=== PATIENT | female | born 1985 | race African-American/Black ===

== ENCOUNTER 2017-01-04 17:36 | Emergency (ER) | payer OTHER ==
[2017-01-04 17:42] VITALS: BP 153/62; PULSE 90; TEMP 98.2; BMI 20.3
[2017-01-04] MEDS ORDERED: ALPRAZolam 0.25 MG TABLET PO ONE (18:04)
--- NOTE | 2017-01-04 18:44 | PDOC ---
History of Present Illness - General Chief Complaint: Chest Pain Stated Complaint: CHEST PAIN Time Seen by Provider: 01/04/17 17:54 History Source: Patient Exam Limitations: No Limitations - History of Present Illness Initial Comments: 01/04/17 18:28 CHIEF COMPLAINT: Chest pain HISTORY OF PRESENT ILLNESS: This is a 31 year old female with a history of IDDM and HTN who presents complaining of chest pain that began at around 3pm today. The pain is "tight", constant, and associated with shortness of breath. She finds that the pain is reproducible with pressing on her chest. She reports anxiety. She has had these episodes nearly daily for the past several months and attributes them to anxiety/panic. She denies recent travel/trauma/surgery, calf pain or swelling, hemoptysis, and family/personal history of hypercoaguability. She smokes cigarettes occasionally. Patient does not follow with a PCP. REVIEW OF SYSTEMS: GENERAL/CONSTITUTIONAL: No fever or chills. No weakness. No weight change. HEAD, EYES, EARS, NOSE AND THROAT: No change in vision. No ear pain or discharge. No sore throat. CARDIOVASCULAR: Chest tightness. RESPIRATORY: Shortness of breath. No cough, wheezing, or hemoptysis. GASTROINTESTINAL: No nausea, vomiting, diarrhea or constipation. GENITOURINARY: No dysuria, frequency, or change in urination. MUSCULOSKELETAL: No joint or muscle swelling or pain. No neck or back pain. SKIN: No rash or easy bruising. NEUROLOGIC: No headache, vertigo, loss of consciousness, or loss of sensation. PSYCHIATRIC: No depression or anxiety. ENDOCRINE: No increased thirst. No abnormal weight change. HEMATOLOGIC/LYMPHATIC: No anemia, easy bleeding, or history of blood clots. ALLERGIC/IMMUNOLOGIC: No hives or skin allergy. No latex allergy. PHYSICAL EXAM: GENERAL: The patient is awake, alert, and fully oriented, in no acute distress. ENT: Pupils equal, round and reactive to light, extraocular movements intact, sclera anicteric, conjunctiva clear. Neck supple. LUNGS: Lungs clear to auscultation No stridor or use of accessory muscles. CV: RRR, S1/S2, no MRG. Cap refill < 2 sec. ABDOMEN: Soft, non-distended, non-tender. EXTREMITIES: Normal range of motion, no edema. NEUROLOGICAL: Normal speech, normal gait. CN II-XII grossly intact. PSYCH: Normal mood, normal affect. SKIN: Warm, dry, normal turgor, no rashes or lesions noted. Past History - Past Medical History Allergies/Adverse Reactions: Allergies Allergy/AdvReac Type Severity Reaction Status Date / Time No Known Allergies Allergy Verified 01/04/17 17:42 Home Medications: Ambulatory Orders Insulin Aspart [Novolog Flexpen] 8 units SQ TID 06/03/14 Insulin Glargine,Hum.rec.anlog [Lantus Solostar PEN -] 20 units SQ HS 06/03/14 Lisinopril [Prinivil] 10 mg PO DAILY 08/05/16 Asthma: No Cancer: No Cardiac Disorders: No Diabetes: Yes HTN: Yes Seizures: No Thyroid Disease: No - Psycho/Social/Smoking Cessation Hx Anxiety: No Suicidal Ideation: No Smoking History: Current every day smoker Have you smoked in the past 12 months: No Number of Cigarettes Smoked Daily: 5 Information on smoking cessation initiated: No Hx Alcohol Use: Yes (ON OCCASIONS.) Drug/Substance Use Hx: No Substance Use Type: Alcohol Hx Substance Use Treatment: No *Physical Exam - Vital Signs Last Vital Signs Temp Pulse Resp BP Pulse Ox 98.2 F 90 18 153/62 100 01/04/17 17:38 01/04/17 17:38 01/04/17 17:38 01/04/17 17:38 01/04/17 17:38 ED Treatment Course - LABORATORY CBC & Chemistry Diagram: 01/04/17 18:40 01/04/17 18:40 - ADDITIONAL ORDERS Additional order review: Laboratory Results 01/04/17 18:10 Urine HCG, Qual Negative - RADIOLOGY Radiology Studies Ordered: Category Date Time Status CHEST PA & LAT [RAD] Stat Radiology 01/04/17 17:54 Ordered Medical Decision Making - Medical Decision Making 01/04/17 19:01 A/P: 31 year old female with chest tightness, shortness of breath, and anxiety. PERC negative. 1. EKG: NSR at 91 bpm, possible left atrial enlargement 2. Urine is negative 3. Obtain CXR 4. FSBG is 351; will obtain labs including acetone, VBG 5. Alprazolam 0.25mg po given for anxiety 6. Would recommend outpatient psychotherapy as well as cardiology evaluation and possible Holter monitor *DC/Admit/Observation/Transfer Diagnosis at time of Disposition: Chest discomfort Diabetes mellitus, insulin dependent (IDDM), uncontrolled Qualifiers: Diabetes mellitus complication status: with other specified complication Qualified Code(s): E10.69 - Type 1 diabetes mellitus with other specified complication - Discharge Dispostion Disposition: HOME - Referrals Referrals: Sujatha Asher NP [Primary Care Provider] - Tristan Hicks MD [Staff Physician] - - Patient Instructions Printed Discharge Instructions: DI for Chest Pain Additional Instructions: Please follow up with Dr. Akbar this week for continued management of your diabetes. Your kidney function test was mildly elevated; this needs to be monitored to ensure that your diabetes is not affecting your kidneys. Please follow up with cardiology this week for further evaluation of your recurrent chest discomfort. If you experience any new chest pain, shortness of breath, dizziness, headache, fever, chills, nausea, vomiting, or any new or worsening symptoms, please return to the ER.
[2017-01-04 18:46] LABS: BASOPHIL 0.9 % (0-2.0); EOSINOPHIL 0.5 % (0-4.5); MCHC 32.1 g/dl (32.0-36.0); MEAN CELL VOLUME 93.4 fl (80-96); MEAN PLT VOLUME 7.7 fl (7.5-11.1); NEUTROPHILS 67.6 % (42.8-82.8); PLATELET COUNT 264 K/MM3 (134-434); RDW 14.3 % (11.6-15.6); WHITE BLOOD COUNT 8.5 K/mm3 (4.0-10.0)
[2017-01-04] MEDS ORDERED: ALPRAZolam 0.25 MG TABLET ONE (19:02)
[2017-01-04 19:08] LABS: ALBUMIN 3.8 g/dl (3.4-5.0); ANION GAP 8 (8-16); BILIRUBIN,TOTAL 0.4 mg/dL (0.2-1.0); CALCIUM 8.6 mg/dL (8.5-10.1); CO2 26 mmol/L (21-32); CREATININE 1.1 mg/dL (0.55-1.02); GLUCOSE,RANDOM 271 mg/dL (74-106); SGOT/AST 15 U/L (15-37); SGPT/ALT 17 U/L (12-78); TOT PROT 7.9 g/dl (6.4-8.2); VENOUS BLOOD GAS HCO3 27.2 meq/L (19-25); VENOUS PH 7.31 (7.32-7.42)
[2017-01-04 19:10] LABS: ALK PHOS 73 U/L (45-117); TROPONIN I < 0.02 ng/ml (0.00-0.05)
[2017-01-04 19:23] LABS: ACETONE SERUM NEGATIVE (NEGATIVE)
--- NOTE | 2017-01-04 19:30 | PDOC ---
*Physical Exam - Vital Signs Last Vital Signs Temp Pulse Resp BP Pulse Ox 98.2 F 90 18 153/62 100 01/04/17 17:38 01/04/17 17:38 01/04/17 17:38 01/04/17 17:38 01/04/17 17:38 - Physical Exam Comments: 01/04/17 19:30 The patient was examined by [INSPECTOR ALIGNING Carmen] under my direct supervision. I personally evaluated the patient. I concur with the above findings and the plan of care. ED Treatment Course - LABORATORY CBC & Chemistry Diagram: 01/04/17 18:40 01/04/17 18:40 - ADDITIONAL ORDERS Additional order review: Laboratory Results 01/04/17 01/04/17 01/04/17 18:40 18:40 18:10 VBG pH 7.31 L POC VBG pCO2 55.2 H POC VBG pO2 25.7 L Mixed VBG HCO3 27.2 H Sodium 138 Potassium 4.1 Chloride 104 Carbon Dioxide 26 Anion Gap 8 BUN 15 Creatinine 1.1 H D Creat Clearance w eGFR 58.32 Random Glucose 271 H D Calcium 8.6 Total Bilirubin 0.4 D AST 15 ALT 17 Alkaline Phosphatase 73 Creatine Kinase 98 Troponin I < 0.02 Total Protein 7.9 Albumin 3.8 Urine HCG, Qual Negative Acetone, Qual Negative L 01/04/17 18:40 RBC 4.14 MCV 93.4 MCHC 32.1 RDW 14.3 MPV 7.7 Neutrophils % 67.6 D Lymphocytes % 23.3 D Monocytes % 7.7 Eosinophils % 0.5 Basophils % 0.9 - Medications Given in the ED: ED Medications Discontinued Medications Generic Name Dose Route Start Last Admin Trade Name Watson PRN Reason Stop Dose Admin Alprazolam 0.25 mg 01/04/17 18:04 01/04/17 19:02 Xanax - PO 01/04/17 18:05 0.25 mg ONCE ONE Administration *DC/Admit/Observation/Transfer Diagnosis at time of Disposition: Chest discomfort, Diabetes mellitus, insulin dependent (IDDM), uncontrolled - Discharge Dispostion Disposition: HOME - Referrals Referrals: Sujatha Asher NP [Primary Care Provider] - Tristan Hicks MD [Staff Physician] - - Patient Instructions Printed Discharge Instructions: DI for Chest Pain Additional Instructions: Please follow up with Dr. Akbar this week for continued management of your diabetes. Your kidney function test was mildly elevated; this needs to be monitored to ensure that your diabetes is not affecting your kidneys. Please follow up with cardiology this week for further evaluation of your recurrent chest discomfort. If you experience any new chest pain, shortness of breath, dizziness, headache, fever, chills, nausea, vomiting, or any new or worsening symptoms, please return to the ER.
[2017-01-04] MEDS ORDERED: SODIUM CHLORIDE 0.9% 1000 ML INFUS.BAG IV ONE ×2 (19:41→19:45)
--- NOTE | 2017-01-04 21:05 | PDOC ---
*Physical Exam - Vital Signs Last Vital Signs Temp Pulse Resp BP Pulse Ox 98.2 F 90 18 153/62 100 01/04/17 17:38 01/04/17 17:38 01/04/17 17:38 01/04/17 17:38 01/04/17 17:38 - Physical Exam Comments: 01/04/17 21:05 Sign-out received from outgoing ER provider Carmen. Pt interviewed and examined. Ancillary studies reviewed. Awaiting labs, CXR. CXR wet read normal with no signs of infiltrate or consolidation. Glucose 271, will give fluids. Creatinine mildly elevated to 1.1. Per RN, patient has given herself her normal 8 units of insulin plus an additional 2. Will repeat finger stick. POC glucose 40. Patient given juice. Patient drank juice and had a meal, repeat POC. At this time POC is 179. Will discharge to home with close follow up with PCP for continued management of her diabetes. Advised patient to follow up with cardiology for further evaluation of recurrent chest discomfort and possible holter monitor. Advised patient of signs and symptoms for return to ER; patient verbalized understanding and agrees to plan. ED Treatment Course - LABORATORY CBC & Chemistry Diagram: 01/04/17 18:40 01/04/17 18:40 - ADDITIONAL ORDERS Additional order review: Laboratory Results 01/04/17 01/04/17 01/04/17 18:40 18:40 18:10 VBG pH 7.31 L POC VBG pCO2 55.2 H POC VBG pO2 25.7 L Mixed VBG HCO3 27.2 H Sodium 138 Potassium 4.1 Chloride 104 Carbon Dioxide 26 Anion Gap 8 BUN 15 Creatinine 1.1 H D Creat Clearance w eGFR 58.32 Random Glucose 271 H D Calcium 8.6 Total Bilirubin 0.4 D AST 15 ALT 17 Alkaline Phosphatase 73 Creatine Kinase 98 Troponin I < 0.02 Total Protein 7.9 Albumin 3.8 Urine HCG, Qual Negative Acetone, Qual Negative L 01/04/17 18:40 RBC 4.14 MCV 93.4 MCHC 32.1 RDW 14.3 MPV 7.7 Neutrophils % 67.6 D Lymphocytes % 23.3 D Monocytes % 7.7 Eosinophils % 0.5 Basophils % 0.9 - Medications Given in the ED: ED Medications Discontinued Medications Generic Name Dose Route Start Last Admin Trade Name Freq PRN Reason Stop Dose Admin Alprazolam 0.25 mg 01/04/17 18:04 01/04/17 19:02 Xanax - PO 01/04/17 18:05 0.25 mg ONCE ONE Administration *DC/Admit/Observation/Transfer Diagnosis at time of Disposition: Chest discomfort Diabetes mellitus, insulin dependent (IDDM), uncontrolled Qualifiers: Diabetes mellitus complication status: with other specified complication Qualified Code(s): E10.69 - Type 1 diabetes mellitus with other specified complication; E10.65 - Type 1 diabetes mellitus with hyperglycemia - Discharge Dispostion Disposition: HOME Condition at time of disposition: Stable Admit: No - Referrals Referrals: Sujatha Asher NP [Primary Care Provider] - Tristan Hicks MD [Staff Physician] - - Patient Instructions Printed Discharge Instructions: DI for Chest Pain Additional Instructions: Please follow up with Dr. Akbar this week for continued management of your diabetes. Your kidney function test was mildly elevated; this needs to be monitored to ensure that your diabetes is not affecting your kidneys. Please follow up with cardiology this week for further evaluation of your recurrent chest discomfort. If you experience any new chest pain, shortness of breath, dizziness, headache, fever, chills, nausea, vomiting, or any new or worsening symptoms, please return to the ER.
--- NOTE | 2017-01-06 10:43 | EKG ---
Test Reason : Blood Pressure : / mmHG Vent. Rate : 091 BPM Atrial Rate : 091 BPM P-R Int : 158 ms QRS Dur : 074 ms QT Int : 374 ms P-R-T Axes : 067 069 070 degrees QTc Int : 460 ms NORMAL SINUS RHYTHM POSSIBLE LEFT ATRIAL ENLARGEMENT BORDERLINE ECG WHEN COMPARED WITH ECG OF 05-AUG-2016 07:38, NO SIGNIFICANT CHANGE WAS FOUND Confirmed by CLAUDIA YO MD ([id number]) on 01/06/2017 10:43:08 AM Referred By: Confirmed By:CLAUDIA YO MD
== END 2017-01-04 21:37 | disposition home or self-care (01) ==
LOC: JER 17:36
DX: R07.89 Other chest pain (principal); I10 Essential (primary) hypertension; E10.65 Type 1 diabetes mellitus with hyperglycemia; Z79.4 Long term (current) use of insulin
CPT/HCPCS: 36415; 71020-TC; 80053; 82009; 82550; 82803; 84484; 84703; 85025; 93005; 93010; 99284-25

== ENCOUNTER 2017-09-02 23:56 | Emergency (ER) | payer OTHER ==
--- NOTE | 2017-09-03 02:00 | PDOC ---
History of Present Illness - General Chief Complaint: Blood Pressure Problem Stated Complaint: BLOOD PRESSURE PROBLEM Time Seen by Provider: 09/03/17 01:48 Past History - Past Medical History Allergies/Adverse Reactions: Allergies Allergy/AdvReac Type Severity Reaction Status Date / Time No Known Allergies Allergy Verified 09/03/17 01:26 Home Medications: Ambulatory Orders Insulin Aspart [Novolog Flexpen] 8 units SQ TID 06/03/14 Insulin Glargine,Hum.rec.anlog [Lantus Solostar PEN -] 20 units SQ HS 06/03/14 Lisinopril [Prinivil] 10 mg PO DAILY 08/05/16 Asthma: No Cancer: No Cardiac Disorders: No Diabetes: Yes HTN: Yes Seizures: No Thyroid Disease: No - Suicide/Smoking/Psychosocial Hx Smoking History: Current every day smoker Have you smoked in the past 12 months: No Number of Cigarettes Smoked Daily: 5 Information on smoking cessation initiated: No Hx Alcohol Use: No Drug/Substance Use Hx: No Substance Use Type: Alcohol Hx Substance Use Treatment: No *Physical Exam - Vital Signs Last Vital Signs Temp Pulse Resp BP Pulse Ox 99.0 F 121 H 14 134/67 98 09/03/17 01:26 09/03/17 01:26 09/03/17 01:26 09/03/17 01:26 09/03/17 01:26
[2017-09-03 02:03] VITALS: BP 134/67; PULSE 121; TEMP 99; BMI 20.3
== END 2017-09-03 02:05 | disposition left against medical advice (07) ==
LOC: JER 23:56
DX: Z53.21 Procedure and treatment not carried out due to patient leaving prior to being seen by health care provider (principal)
CPT/HCPCS: 99281-25

== ENCOUNTER 2017-09-29 15:45 | Emergency (ER) | payer OTHER ==
[2017-09-29 16:11] VITALS: BP 118/80; PULSE 100; TEMP 98.6; BMI 21.2
--- NOTE | 2017-09-29 16:12 | PDOC ---
Rapid Medical Evaluation Time Seen by Provider: 09/29/17 16:08 Medical Evaluation: Allergies Allergy/AdvReac Type Severity Reaction Status Date / Time No Known Allergies Allergy Verified 09/29/17 16:08 09/29/17 16:08 The patient presents with a chief complaint of: 11 weeks . Noticed spotting starting two hours ago. No sonogram yet. Suprapubic tenderness. Denies hematuria, frequency, urgency, dysuria. LMP 07/16/17 I have performed a brief in-person evaluation of this patient; Pertinent physical exam findings: ambulatory, in no respiratory distress. VSS, Suprapubic tenderness, abdomen soft, non-distended I have ordered the following: CBC, Type and Screen, Beta-HCG, UA, UC, Transvaginal US The patient will proceed to the ED for further evaluation.
[2017-09-29 16:51] LABS: URINE APPEARANCE CLEAR; URINE BILIRUBIN NEGATIVE (NEGATIVE); URINE BLOOD 2+ (NEGATIVE); URINE COLOR LT. YELLOW; URINE GLUCOSE (UA) TRACE (NEGATIVE); URINE KETONE NEGATIVE (NEGATIVE); URINE LEUK ESTERASE NEGATIVE (NEGATIVE); URINE NITRITE NEGATIVE (NEGATIVE); URINE PROTEIN NEGATIVE (NEGATIVE); URINE UROBILINOGEN 0.2 mg/dL (0.2-1.0)
[2017-09-29 16:52] LABS: BASO % 0.6 % (0-2.0); EOS % 0.8 % (0-4.5); HEMATOCRIT 35.1 % (32.4-45.2); HEMOGLOBIN 11.5 GM/dL (10.7-15.3); LYMPH % 17.4 % (8-40); MCH 30.8 pg (25.7-33.7); MCHC 32.7 g/dl (32.0-36.0); MEAN CELL VOLUME 93.9 fl (80-96); MONO % 7.1 % (3.8-10.2); NEUT % 74.1 % (42.8-82.8); PLATELET COUNT 373 K/MM3 (134-434); RBC 3.73 M/mm3 (3.60-5.2); RDW 13.5 % (11.6-15.6); WHITE BLOOD COUNT 12.9 K/mm3 (4.0-10.0)
[2017-09-29] MEDS ORDERED: ACETAMINOPHEN 325 MG TABLET (FP) PO ONE (16:59)
[2017-09-29 17:14] LABS: EPI CELLS RARE /HPF (FEW); URINE BACTERIA RARE /hpf (NONE SEEN); URINE MUCUS RARE
--- NOTE | 2017-09-29 18:11 | PDOC ---
History of Present Illness - General Chief Complaint: Vaginal Bleeding Stated Complaint: VAGINAL BLEEDING (11 WKS ) Time Seen by Provider: 09/29/17 16:08 - History of Present Illness Initial Comments: 09/29/17 18:09 32 yo at 11 wga with h/o IDDM who presents with vaginal bleeding in . Patient reports acute onset of progressive bright red vaginal bleeding at 1300 ( 09/29/17), asx with diffuse crampy lower abdominal pain. Denies abdominal trauma. Denies N/V, F/C, DALY, vision changes, CP, SOB, pelvic pain, urinary complaints, hematuria, diarrhea, consitpation, BPR, lightheadedness. LMP ( 07/16/18). 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 Denies tobacco, alcohol, or eilicit drug use. Denies h/o STIs. Last complicated with placenta previa. Past History - Past Medical History Allergies/Adverse Reactions: Allergies Allergy/AdvReac Type Severity Reaction Status Date / Time No Known Allergies Allergy Verified 09/29/17 16:08 Home Medications: Ambulatory Orders Insulin Aspart [Novolog Flexpen] 8 units SQ TID 06/03/14 Asthma: No Cancer: No Cardiac Disorders: No COPD: No Diabetes: Yes HTN: Yes Seizures: No Thyroid Disease: No - Reproductive History Is Patient Now?: Yes (#): 4 Para: 2 Therapeutic (s) & number: Yes (ELECTIVE) - Suicide/Smoking/Psychosocial Hx Smoking History: Former smoker Have you smoked in the past 12 months: No Number of Cigarettes Smoked Daily: 5 Information on smoking cessation initiated: Yes Hx Alcohol Use: Yes (ON OCCASIONS.) Drug/Substance Use Hx: No Substance Use Type: None Hx Substance Use Treatment: No Review of Systems - Review of Systems Comments:: 09/29/17 18:10 GENERAL/CONSTITUTIONAL: No fever or chills. No weakness. HEAD, EYES, EARS, NOSE AND THROAT: No change in vision. No ear pain or discharge. No sore throat.- CARDIOVASCULAR: No chest pain or shortness of breath RESPIRATORY: No cough, wheezing, or hemoptysis. GASTROINTESTINAL: No nausea, vomiting, diarrhea or constipation. GENITOURINARY: + Vaginal bleeding. No dysuria, frequency, or change in urination. MUSCULOSKELETAL: No joint or muscle swelling or pain. No neck or back pain. SKIN: No rash NEUROLOGIC: No headache, vertigo, loss of consciousness, or change in strength/ sensation. ENDOCRINE: No increased thirst. No abnormal weight change HEMATOLOGIC/LYMPHATIC: No anemia, easy bleeding, or history of blood clots. ALLERGIC/IMMUNOLOGIC: No hives or skin allergy. *Physical Exam - Vital Signs Last Vital Signs Temp Pulse Resp BP Pulse Ox 98.6 F 100 H 18 118/80 100 09/29/17 16:08 09/29/17 16:08 09/29/17 16:08 09/29/17 16:08 09/29/17 16:08 - Physical Exam Comments: 09/29/17 18:11 GENERAL: Awake, alert, and fully oriented, in no acute distress HEAD: No signs of trauma, normocephalic, atraumatic EYES: PERRLA, EOMI, sclera anicteric, conjunctiva clear ENT: Hearing grossly normal, nares patent, oropharynx clear without exudates. Moist mucosa NECK: Normal ROM, no JVD, or masses LUNGS: No distress, speaks full sentences, clear to auscultation bilaterally HEART: Regular rate and rhythm, normal S1 and S2, no murmurs, rubs or gallops, peripheral pulses normal and equal bilaterally. ABDOMEN: Soft, nontender, normoactive bowel sounds. No guarding, no rebound. No masses : Active blood visualzied from vagina. Absent cervical motion ttp on bimanual exam. Unable to visualize cervical os d/t uterine alignment. EXTREMITIES : Normal inspection, Normal range of motion, no edema. No clubbing or cyanosis. SKIN: Warm, Dry, normal turgor, no rashes or lesions noted. ED Treatment Course - LABORATORY CBC & Chemistry Diagram: 09/29/17 16:40 09/29/17 18:28 - ADDITIONAL ORDERS Additional order review: Laboratory Results 09/29/17 16:40 Urine Color Lt. yellow Urine Appearance Clear Urine pH 6.0 Ur Specific [place] <= 1.005 Urine Protein Negative Urine Glucose (UA) Trace H Urine Ketones Negative Urine Blood 2+ H Urine Nitrite Negative Urine Bilirubin Negative Urine Urobilinogen 0.2 Ur Leukocyte Esterase Negative Urine WBC (Auto) <1 Urine RBC (Auto) <1 Ur Epithelial Cells Rare Urine Bacteria Rare Urine Mucus Rare 09/29/17 16:40 RBC 3.73 MCV 93.9 MCHC 32.7 RDW 13.5 MPV 7.0 L Neutrophils % 74.1 Lymphocytes % 17.4 D Monocytes % 7.1 Eosinophils % 0.8 Basophils % 0.6 - Medications Given in the ED: ED Medications Discontinued Medications Generic Name Dose Route Start Last Admin Trade Name Watson PRN Reason Stop Dose Admin Acetaminophen 650 mg 09/29/17 16:59 09/29/17 17:00 Tylenol - PO 09/29/17 17:00 650 mg ONCE ONE Administration Medical Decision Making - Medical Decision Making 09/29/17 18:23 32 yo at 11 wga with h/o IDDM who presents w acute onset of progressive bright red vaginal bleeding at 1300 ( 09/29/17), asx with diffuse crampy lower abdominal pain. Denies abdominal trauma. Denies N/V, F/C, DALY, vision changes, CP , SOB, pelvic pain, urinary complaints, hematuria, diarrhea, consitpation, BPR, lightheadedness. LMP ( 07/16/18). 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 Denies tobacco, alcohol, or eilicit drug use. Denies h/o STIs. Last complicated with placenta previa. Physical exam noteable for active blood visualized from vagina. Hemodynamically stable. Absent cervical motion ttp on bimanual exam. Unable to visualize cervical os d/t uterine alignment. Patient presentation of painful bleeding in concerning for placenta previa vs. chorionic hemmorhage vs. threatened . [facility] Course: 09/29/17 18:36 CBC: Unremarkable C 09/29/17 19:48 Vaginal U/S: Intrauterine gestational sac with yolk sac. No pole. Consistent with 5 wga. Patient stable and ready for d/c. Advised t f/u in ED or with [employer] for repeat HCG and ultrasound. Return precautions. *DC/Admit/Observation/Transfer Diagnosis at time of Disposition: Bleeding in early - Discharge Dispostion Disposition: HOME Condition at time of disposition: Stable Admit: No - Referrals Referrals: Chica Mendoza MD [Primary Care Provider] - Bert Cordova MD [Staff Physician] - - Patient Instructions Additional Instructions: Please return to the emergency department with any new or worsening symptoms or concerns. Please return to the emergency department or nut culler physician in 2 days for repeat testing. - Post Discharge Activity - Attestations Physician Attestion: 09/29/17 18:25 I attest to the information provided in this note.
[2017-09-29 19:03] LABS: ALBUMIN 3.7 g/dl (3.4-5.0); ALK PHOS 77 U/L (45-117); ANION GAP 7 (8-16); BILIRUBIN,TOTAL 0.3 mg/dL (0.2-1.0); BLOOD UREA NITROGEN 17 mg/dL (7-18); CHLORIDE 104 mmol/L (98-107); CO2 25 mmol/L (21-32); GLUCOSE,RANDOM 151 mg/dL (74-106); POTASSIUM 4.6 mmol/L (3.5-5.1); SGOT/AST 23 U/L (15-37); SGPT/ALT 24 U/L (12-78); SODIUM 136 mmol/L (136-145); TOT PROT 7.7 g/dl (6.4-8.2)
== END 2017-09-29 21:12 | disposition home or self-care (01) ==
LOC: JER 15:45
DX: O26.91 Pregnancy related conditions, unspecified, first trimester (principal); O20.8 Other hemorrhage in early pregnancy; O24.911 Unspecified diabetes mellitus in pregnancy, first trimester; Z3A.11 11 weeks gestation of pregnancy; Z79.4 Long term (current) use of insulin
CPT/HCPCS: 36415; 76817-TC; 80053; 81003; 81015; 84702; 85025; 86850; 86900; 86901; 87086; 99282-25

== ENCOUNTER 2017-09-30 02:39 | Emergency (ER) | payer OTHER ==
[2017-09-30 03:10] VITALS: BP 145/87; PULSE 98; TEMP 98.9; BMI 21.6
[2017-09-30] MEDS ORDERED: SODIUM CHLORIDE 1,000 ML IV STA (03:14)
--- NOTE | 2017-09-30 03:14 | PDOC ---
History of Present Illness - General Chief Complaint: Vaginal Bleeding Stated Complaint: R/O MISCARRIAGE Time Seen by Provider: 09/30/17 03:13 History Source: Patient - History of Present Illness Initial Comments: 09/30/17 04:07 32 year old female seen yesterday in the ED for vaginal bleeding in , return for pelvic cramping and passing large clots at home prior to arrival. Past History - Past Medical History Allergies/Adverse Reactions: Allergies Allergy/AdvReac Type Severity Reaction Status Date / Time No Known Allergies Allergy Verified 09/29/17 16:08 Home Medications: Ambulatory Orders NK [No Known Home Medication] 09/30/17 Asthma: No Cancer: No Cardiac Disorders: No COPD: No Diabetes: Yes HTN: Yes Seizures: No Thyroid Disease: No - Reproductive History (#): 4 Para: 2 Therapeutic (s) & number: Yes (ELECTIVE) - Suicide/Smoking/Psychosocial Hx Smoking History: Current every day smoker Have you smoked in the past 12 months: Yes Number of Cigarettes Smoked Daily: 2 Information on smoking cessation initiated: No Hx Alcohol Use: No Drug/Substance Use Hx: No Substance Use Type: Alcohol Hx Substance Use Treatment: No Review of Systems - Review of Systems Able to Perform ROS?: Yes Is the patient limited Bermudian proficient: No : Yes: Other (vaginal bleeding) *Physical Exam - Vital Signs Last Vital Signs Temp Pulse Resp BP Pulse Ox 98.9 F 98 H 18 145/87 98 09/30/17 03:05 09/30/17 03:05 09/30/17 03:05 09/30/17 03:05 09/30/17 03:05 - Physical Exam General Appearance: Yes: Appropriately Dressed Respiratory/Chest: positive: Lungs Clear, Normal Breath Sounds Cardiovascular: positive: Regular Rhythm, Regular Rate Female Pelvic Exam: positive: normal external exam, other (vaginal bleeding and clots in vaginal vault. ) Gastrointestinal/Abdominal: positive: Normal Bowel Sounds, Soft. negative: Tender Musculoskeletal: positive: Normal Inspection Extremity: positive: Normal Capillary Refill, Normal Inspection, Normal Range of Motion Integumentary: positive: Normal Color, Dry, Warm Neurologic: positive: Fully Oriented, Alert, Normal Mood/Affect ED Treatment Course - LABORATORY CBC & Chemistry Diagram: 09/30/17 03:30 Progress Note - Progress Note Progress Note: A: P: beta hcg lowering. 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 follow up with needle loom weaver as soon as possible. return to the ED if symptoms worsen. - Post Discharge Activity
[2017-09-30 03:44] LABS: BASO % 0.5 % (0-2.0); EOS % 1.1 % (0-4.5); HEMATOCRIT 34.9 % (32.4-45.2); HEMOGLOBIN 11.4 GM/dL (10.7-15.3); LYMPH % 18.4 % (8-40); MCH 30.6 pg (25.7-33.7); MCHC 32.7 g/dl (32.0-36.0); MEAN CELL VOLUME 93.6 fl (80-96); MONO % 8.4 % (3.8-10.2); NEUT % 71.6 % (42.8-82.8); PLATELET COUNT 325 K/MM3 (134-434); RBC 3.73 M/mm3 (3.60-5.2); RDW 13.2 % (11.6-15.6); WHITE BLOOD COUNT 12.8 K/mm3 (4.0-10.0)
[2017-09-30 04:03] LABS: INR 1.01 (0.82-1.09); PROTHROMBIN TIME (PATIENT) 11.4 SEC (9.98-11.88)
== END 2017-09-30 05:48 | disposition home or self-care (01) ==
LOC: JER 02:39
PROC: 3E0337Z Introduction of Electrolytic and Water Balance Substance into Peripheral Vein, Percutaneous Approach (ICD-10-PCS; principal; 2017-09-30)
DX: O26.891 Other specified pregnancy related conditions, first trimester (principal); O02.1 Missed abortion; Z3A.11 11 weeks gestation of pregnancy
CPT/HCPCS: 36415; 84702; 85025; 85610; 86850; 86900; 86901; 96360; 99281-25

== ENCOUNTER 2018-06-05 10:04 | Emergency (ER) | payer OTHER ==
[2018-06-05 10:30] LABS: URINE APPEARANCE CLEAR; URINE BILIRUBIN NEGATIVE (<2.0 mg/dL); URINE COLOR STRAW; URINE GLUCOSE (UA) 3+ (NEGATIVE); URINE KETONE NEGATIVE (NEGATIVE); URINE LEUK ESTERASE NEGATIVE (NEGATIVE); URINE NITRITE NEGATIVE (NEGATIVE); URINE PROTEIN NEGATIVE (NEGATIVE); URINE UROBILINOGEN NEGATIVE mg/dL (0.2-1.0)
[2018-06-05 10:31] LABS: HCG,QUALITATIVE URINE Negative
[2018-06-05 10:34] LABS: EPI CELLS RARE /HPF (FEW); URINE BACTERIA RARE /hpf (NONE SEEN); URINE MUCUS RARE
--- NOTE | 2018-06-05 11:08 | PDOC ---
History of Present Illness <Corina Chaudhari - Last Filed: 06/05/18 14:47> - History of Present Illness Initial Comments: 06/05/18 11:07 33 yo F w/ PMH HTN, IDDM, 2 C-sections p/w stabbing non radiating 6/10 intermittent RLQ pain x3wk w/ few episodes of NBNB vomit and decreased appetite. Pt went to [facility] twice in the last 3 weeks. They did U/S and CT and was told she had cysts and umbilical hernia. Abd pain is not associated w/ food. laying on L side makes it better. Denies fevers, chills, diarrhea, blood in stools, urinary sxs, vaginal bleeding or discharge, hx STDs, recent travel. LMP was 2 wks ago. SH: 3 cig/dy for 13 yr. etoh occasional. denies drugs Meds: amlodipine 5 HS, novalog 8U TID, Lantus 20U HS <Sid Conklin - Last Filed: 06/05/18 15:01> - General Chief Complaint: Pain, Acute Stated Complaint: ABD PAIN Past History <Corina Chaudhari - Last Filed: 06/05/18 14:47> - Past Medical History Asthma: No Cancer: No Cardiac Disorders: No COPD: No Diabetes: Yes (insulin dep) HTN: Yes Seizures: No Thyroid Disease: No - Reproductive History (#): 4 Para: 2 Therapeutic (s) & number: Yes (ELECTIVE) - Suicide/Smoking/Psychosocial Hx Smoking History: Current every day smoker Have you smoked in the past 12 months: Yes Number of Cigarettes Smoked Daily: 2 Information on smoking cessation initiated: No Hx Alcohol Use: No Drug/Substance Use Hx: No Substance Use Type: Alcohol Hx Substance Use Treatment: No <Sid Conklin - Last Filed: 06/05/18 15:01> - Past Medical History Allergies/Adverse Reactions: Allergies Allergy/AdvReac Type Severity Reaction Status Date / Time No Known Allergies Allergy Verified 06/05/18 10:08 Home Medications: Ambulatory Orders Amlodipine Besylate [Norvasc -] 5 mg PO DAILY 06/05/18 Insulin (Novolog) [Novolog] 8 units SQ AC 06/05/18 Insulin Glargine,Hum.rec.anlog [Lantus Solostar PEN (NF)] 20 units SQ HS Review of Systems - Review of Systems Constitutional: Yes: See HPI HEENTM: Yes: See HPI Respiratory: Yes: See HPI Cardiac (ROS): Yes: See HPI ABD/GI: Yes: See HPI : Yes: See HPI Musculoskeletal: Yes: See HPI Integumentary: Yes: See HPI Neurological: Yes: See HPI Endocrine: Yes: See HPI Hematologic/Lymphatic: Yes: See HPI <Sid Conklin - Last Filed: 06/05/18 15:01> *Physical Exam - Vital Signs Last Vital Signs Temp Pulse Resp BP Pulse Ox 98.2 F 89 18 163/89 100 06/05/18 14:33 06/05/18 14:33 06/05/18 14:33 06/05/18 14:33 06/05/18 14:33 <Corina Chaudhari - Last Filed: 06/05/18 14:47> - Vital Signs Last Vital Signs Temp Pulse Resp BP Pulse Ox 98.5 F 101 H 18 147/98 100 06/05/18 10:11 06/05/18 10:11 06/05/18 10:11 06/05/18 10:11 06/05/18 10:11 - Physical Exam Comments: 06/05/18 11:49 General: Well-nourished, NAD HEENT: NCAT, MMM Neck: Supple, no lymphadenopathy Respiratory: CTAB cardio: RRR S1 S2 no m/r/g Abdomen: +BS , Soft, mild distension, TTP RLQ +psoas sign, small umbilical hernia Extremities: radial 2+ b/l. Warm, dry, no cyanosis, edema, clubbing or calf tenderness Skin: intact. no rashes Neuro: Alert and oriented x3, nonfocal exam, grossly intact Psych: Normal mood and affect Pelvic: no vaginal bleeding or cervical motion tenderness. R adnexal tenderness. white cervical discharge <KaterinSid - Last Filed: 06/05/18 15:01> ED Treatment Course - LABORATORY CBC & Chemistry Diagram: 06/05/18 11:28 06/05/18 11:28 - ADDITIONAL ORDERS Additional order review: Laboratory Results 06/05/18 06/05/18 11:28 10:15 Sodium 133 L Potassium 4.7 Chloride 100 Carbon Dioxide 26 Anion Gap 7 L BUN 13 Creatinine 1.1 Creat Clearance w eGFR 57.56 Random Glucose 228 H Calcium 9.1 Total Bilirubin 0.1 L AST 19 ALT 20 Alkaline Phosphatase 80 Total Protein 8.1 Albumin 3.7 Urine Color Straw Urine Appearance Clear Urine pH 5.0 Ur Specific [place] 1.003 L Urine Protein Negative Urine Glucose (UA) 3+ H D Urine Ketones Negative Urine Blood 1+ H Urine Nitrite Negative Urine Bilirubin Negative Urine Urobilinogen Negative Ur Leukocyte Esterase Negative Urine WBC (Auto) 1 Urine RBC (Auto) <1 Ur Epithelial Cells Rare Urine Bacteria Rare Urine Mucus Rare Urine HCG, Qual Negative 06/05/18 11:28 RBC 4.14 MCV 91.6 MCHC 32.7 RDW 13.2 MPV 7.3 L Neutrophils % 46.1 D Lymphocytes % 39.8 D Monocytes % 9.2 Eosinophils % 4.0 D Basophils % 0.9 <Corina Chaudhari - Last Filed: 06/05/18 14:47> - LABORATORY CBC & Chemistry Diagram: 06/05/18 11:28 06/05/18 11:28 - ADDITIONAL ORDERS Additional order review: Laboratory Results 06/05/18 10:15 Urine Color Straw Urine Appearance Clear Urine pH 5.0 Ur Specific [place] 1.003 L Urine Protein Negative Urine Glucose (UA) 3+ H D Urine Ketones Negative Urine Blood 1+ H Urine Nitrite Negative Urine Bilirubin Negative Urine Urobilinogen Negative Ur Leukocyte Esterase Negative Urine WBC (Auto) 1 Urine RBC (Auto) <1 Ur Epithelial Cells Rare Urine Bacteria Rare Urine Mucus Rare Urine HCG, Qual Negative <Sid Conklin - Last Filed: 06/05/18 15:01> Medical Decision Making - Medical Decision Making 06/05/18 11:22 33 yo F w/ PMH HTN, IDDM, 2 C-sections p/w stabbing non radiating 6/10 intermittent RLQ pain x3wk w/ few episodes of NBNB vomit and decreased appetite. neg UA for infx, neg preg tachycardia, other vitals wnl Ddx: appendicitis vs ovarian cyst rupture vs torsion vs SBO vs hernia -CBC CMP -Pelvic U/S -will call [facility] to obtain U/S and CT results, pt consented to release of info. -GC amplification 06/05/18 12:08 CT and U/S obtained: -CT showed mild fluid distension of the cecum and fluid prominence of the R colon nonspecific. small umbilical hernia containing fat, no strangulation, anterior abd wall midline deficiency. appendix partially seen, visualized portions normal size -U/S showed b/l ovarian cysts and no torsion. cysts were <2cm in size 06/05/18 14:59 labs and UA unremarkable U/S shows simple R ovarian cyst pt with negative recent ct. due to risk/ benefit of radiation, repeat ct unwarranted. will refer pt out for fu with gi and ob/ rn gyn. pt stable and ready for discharge <Sid Conklin - Last Filed: 06/05/18 15:01> *DC/Admit/Observation/Transfer - Discharge Dispostion Decision to Admit order: No <Corina Chaudhari - Last Filed: 06/05/18 14:47> <Sid Conklin - Last Filed: 06/05/18 15:01> Diagnosis at time of Disposition: Abdominal pain - Discharge Dispostion Disposition: HOME Condition at time of disposition: Stable - Referrals Referrals: Zoey Josue MD [Non Staff, Medical] - Sally Frye MD [Staff Physician] - Deniz Quiñonez MD [Staff Physician] - - Patient Instructions Printed Discharge Instructions: Acute Abdominal Pain Additional Instructions: you should follow up with a fagot maker. call dr frye to schedule. you should also follow up with a ob/ project manager retail. call dr. quiñonez to schedule. return for any vomiting, fever chills or any concerns.
[2018-06-05 11:41] LABS: BASO % 0.9 % (0-2.0); HEMOGLOBIN 12.4 GM/dL (10.7-15.3); LYMPH % 39.8 % (8-40); MCHC 32.7 g/dl (32.0-36.0); MEAN CELL VOLUME 91.6 fl (80-96); MEAN PLT VOLUME 7.3 fl (7.5-11.1); MONO % 9.2 % (3.8-10.2); NEUT % 46.1 % (42.8-82.8); PLATELET COUNT 345 K/MM3 (134-434); RBC 4.14 M/mm3 (3.60-5.2); RDW 13.2 % (11.6-15.6); WHITE BLOOD COUNT 6.1 K/mm3 (4.0-10.0)
[2018-06-05 12:02] LABS: ALBUMIN 3.7 g/dl (3.4-5.0); ALK PHOS 80 U/L (45-117); ANION GAP 7 MMOL/L (8-16); BILIRUBIN,TOTAL 0.1 mg/dL (0.2-1); BLOOD UREA NITROGEN 13 mg/dL (7-18); CALCIUM 9.1 mg/dL (8.5-10.1); CHLORIDE 100 mmol/L (98-107); CO2 26 mmol/L (21-32); CREATININE 1.1 mg/dL (0.55-1.3); GLUCOSE,RANDOM 228 mg/dL (74-106); POTASSIUM 4.7 mmol/L (3.5-5.1); SGOT/AST 19 U/L (15-37); SGPT/ALT 20 U/L (13-61); SODIUM 133 mmol/L (136-145); TOT PROT 8.1 g/dl (6.4-8.2)
--- NOTE | 2018-06-05 12:09 | PDOC ---
Attending Attestation - Resident Resident Name: KaterinSid - ED Attending Attestation I have performed the following: I have examined & evaluated the patient, The case was reviewed & discussed with the resident, I agree w/resident's findings & plan, Exceptions are as noted - HPI HPI: 06/05/18 12:04 33 yo F with h/o ovarian cyst here with c/o persistant right lower quadrant pain. has had pain intermittently for 3 week. cant associate any moderating factors. no f/c no urinary complaints. no vaginal discharge. denies associate with food. no back pain. no urinary complaints. was seen at [facility] one week ago had ct a/p with iv and oral contrast, and tvus. small 1.5 cm cyst bilat adnexa, and ct with paritially visuzlied appendix, no appendictis. noted dilated bowel on right side. - Physicial Exam PE: 06/05/18 12:07 awake alert lungs clear bilaterally heart rrr no mrg abd soft mild rlq ttp. no rebound no guarding. no cva tenderness. pelvic scant whitish discharge. right adnexal tenderness. no cmt. no adnexal massess. - Medical Decision Making 06/05/18 12:08 differential: ovarian cyst rupture, appendicitis unlikley due to longevity of sxs, gas pain. intestinal issues. will repeat us ovaries. possible outpt referral for gi. chlmaydia and gc sent. ucg. 06/05/18 14:46 pt ultrasoud with simple right ivarian cyst. pt with negative recent ct. due to risk/ benefit of radiation, repeat ct unwarranted. will refer pt out for fu with gi and ob/ buildings painter.
[2018-06-05 14:34] VITALS: BP 163/89; PULSE 89; TEMP 98.2
== END 2018-06-05 15:04 | disposition home or self-care (01) ==
LOC: JER 10:04
DX: R10.31 Right lower quadrant pain (principal); N83.201 Unspecified ovarian cyst, right side; N83.202 Unspecified ovarian cyst, left side; I10 Essential (primary) hypertension; E10.9 Type 1 diabetes mellitus without complications; Z79.4 Long term (current) use of insulin
CPT/HCPCS: 36415; 76856-TC; 80053; 81003; 81015; 84703; 85025; 87086; 87491; 87591; 99284-25

== ENCOUNTER 2018-08-03 17:23 | Emergency (ER) | payer OTHER ==
[2018-08-03 17:32] VITALS: BP 153/91; PULSE 93; TEMP 98.8; BMI 21.2
--- NOTE | 2018-08-03 17:32 | PDOC ---
Rapid Medical Evaluation Time Seen by Provider: 08/03/18 17:29 Medical Evaluation: Allergies Allergy/AdvReac Type Severity Reaction Status Date / Time No Known Allergies Allergy Verified 06/05/18 10:08 08/03/18 17:29 I have performed a brief in-person evaluation of this patient. The patient presents with a chief complaint of: Vomiting w/ abd pain today. Vomitus have streaks of blood per pt. Now feels light headed. No diarrhea or fever. H/o IDDM (Type 1), HTN, ?umbilical hernia, no h/o DKA Pertinent physical exam findings: I have ordered the following:labs/ua/upreg The patient will proceed to the ED for further evaluation Discharge Disposition - Diagnosis Abdominal pain Qualifiers: Abdominal location: generalized Qualified Code(s): R10.84 - Generalized abdominal pain - Discharge Dispostion Condition at time of disposition: Stable - Referrals - Patient Instructions - Post Discharge Activity
--- NOTE | 2018-08-03 17:44 | PDOC ---
History of Present Illness - General Chief Complaint: Nausea/Vomiting Stated Complaint: Vomiting Blood/ABD PAIN Time Seen by Provider: 08/03/18 17:29 - History of Present Illness Initial Comments: 08/03/18 17:44 Ms. Butler is a 33 yo female w/ pmh of type I DM, HTN, and known umbilical hernia who presents for evaluation of nausea and vomiting. Patient reports she was out with friends last night drinking and experienced nausea and vomiting upon waking up this morning. She became concerned when successive vomiting episodes became tinged with blood. She also reports some midline abdominal pain (now resolved). No other concerns at this time. The patient denies chest pain, shortness of breath, headache and dizziness. Denies fever, chills, diarrhea and constipation. Denies dysuria, frequency, urgency and hematuria. Past History - Past Medical History Allergies/Adverse Reactions: Allergies Allergy/AdvReac Type Severity Reaction Status Date / Time No Known Allergies Allergy Verified 06/05/18 10:08 Home Medications: Ambulatory Orders Amlodipine Besylate [Norvasc -] 5 mg PO DAILY 06/05/18 Insulin (Novolog) [Novolog] 8 units SQ AC 06/05/18 Insulin Glargine,Hum.rec.anlog [Lantus Solostar PEN (NF)] 20 units SQ HS Asthma: No Cancer: No Cardiac Disorders: No COPD: No Diabetes: Yes (insulin dep) HTN: Yes Seizures: No Thyroid Disease: No Other medical history: UMBLICAL HERNIA - Surgical History Cardiac Surgery: No Neurologic Surgery: No - Reproductive History (#): 4 Para: 2 Therapeutic (s) & number: Yes (ELECTIVE) - Immunization History Immunization Up to Date: No - Suicide/Smoking/Psychosocial Hx Smoking History: Current some day smoker Have you smoked in the past 12 months: No Number of Cigarettes Smoked Daily: 2 Information on smoking cessation initiated: No Hx Alcohol Use: No Drug/Substance Use Hx: No Substance Use Type: Alcohol Hx Substance Use Treatment: No Review of Systems - Review of Systems Comments:: 08/03/18 17:45 GENERAL/CONSTITUTIONAL: No fever or chills. No weakness. HEAD, EYES, EARS, NOSE AND THROAT: No change in vision. No ear pain or discharge. No sore throat. CARDIOVASCULAR: No chest pain or shortness of breath RESPIRATORY: No cough, wheezing, or hemoptysis. GASTROINTESTINAL: +N/V as described w/ additional midline abdominal pain. No diarrhea or constipation. GENITOURINARY: No dysuria, frequency, or change in urination. MUSCULOSKELETAL: No joint or muscle swelling or pain. No neck or back pain. SKIN: No rash NEUROLOGIC: No headache, vertigo, loss of consciousness, or change in strength/ sensation. ENDOCRINE: No increased thirst. No abnormal weight change HEMATOLOGIC/LYMPHATIC: No anemia, easy bleeding, or history of blood clots. ALLERGIC/IMMUNOLOGIC: No hives or skin allergy. *Physical Exam - Vital Signs Last Vital Signs Temp Pulse Resp BP Pulse Ox 98.8 F 93 H 18 153/91 99 08/03/18 17:29 08/03/18 17:29 08/03/18 17:29 08/03/18 17:29 08/03/18 17:29 - Physical Exam Comments: 08/03/18 17:46 GENERAL: Awake, alert, and fully oriented, in no acute distress HEAD: No signs of trauma, normocephalic, atraumatic EYES: PERRLA, EOMI, sclera anicteric, conjunctiva clear ENT: Auricles normal inspection, hearing grossly normal, nares patent, oropharynx clear without exudates. Moist mucosa NECK: Normal ROM, supple, no lymphadenopathy, JVD, or masses LUNGS: No distress, speaks full sentences, clear to auscultation bilaterally HEART: Regular rate and rhythm, normal S1 and S2, no murmurs, rubs or gallops, peripheral pulses normal and equal bilaterally. ABDOMEN: Soft, nontender, normoactive bowel sounds. No guarding, no rebound. No masses EXTREMITIES: Normal inspection, Normal range of motion, no edema. No clubbing or cyanosis. NEUROLOGICAL: Cranial nerves II through XII grossly intact. Normal speech, normal gait, no focal sensorimotor deficits SKIN: Warm, Dry, normal turgor, no rashes or lesions noted. Moderate Sedation - Procedure Monitoring Vital Signs: Procedure Monitoring Vital Signs Temperature 98.8 F 08/03/18 17:29 Pulse Rate 93 H 08/03/18 17:29 Respiratory Rate 18 08/03/18 17:29 Blood Pressure 153/91 08/03/18 17:29 O2 Sat by Pulse Oximetry (%) 99 08/03/18 17:29 ED Treatment Course - LABORATORY CBC & Chemistry Diagram: 08/03/18 17:40 08/03/18 17:40 Medical Decision Making - Medical Decision Making 08/03/18 18:04 Ms. Butler is a 33 yo female w/ pmh as described who presents for evaluation of symptoms c/w hangover. Suspect blood tinged vomit due to repeated vomiting. Labs sent for evaluation of fluid status and infection r/o. Zofran/fluids given for symptomatic relief. 08/03/18 18:51 Patient reporting relief with above treatment. Labs grossly wnl as below. No concern for acute process at this time. Discharging to home. Laboratory Results - last 24 hr 08/03/18 08/03/18 08/03/18 17:30 17:40 17:40 WBC 8.8 RBC 3.91 Hgb 12.4 Hct 35.7 MCV 91.3 MCH 31.8 MCHC 34.9 RDW 13.8 Plt Count 325 MPV 7.7 Absolute Neuts (auto) 5.3 Neutrophils % 60.7 D Lymphocytes % 29.7 D Monocytes % 7.8 Eosinophils % 0.9 Basophils % 0.9 Nucleated RBC % 0 Sodium 134 L Potassium 4.2 Chloride 99 Carbon Dioxide 27 Anion Gap 8 BUN 19 H Creatinine 1.4 H Creat Clearance w eGFR 43.58 Random Glucose 278 H Calcium 8.6 Total Bilirubin 0.5 AST 17 ALT 20 Alkaline Phosphatase 78 Total Protein 7.7 Albumin 3.7 Lipase 93 Urine Color Straw Urine Appearance Clear Urine pH 6.0 Ur Specific [place] 1.024 Urine Protein Negative Urine Glucose (UA) 3+ H Urine Ketones Negative Urine Blood Negative Urine Nitrite Negative Urine Bilirubin Negative Urine Urobilinogen Negative Ur Leukocyte Esterase Negative Urine HCG, Qual Negative *DC/Admit/Observation/Transfer Diagnosis at time of Disposition: Abdominal pain Qualifiers: Abdominal location: generalized Qualified Code(s): R10.84 - Generalized abdominal pain - Discharge Dispostion Disposition: HOME Condition at time of disposition: Stable - Referrals - Patient Instructions Printed Discharge Instructions: DI for Vomiting -- Adult Additional Instructions: You were evaluated today in the ER for your nausea and vomiting. No concerning findings were found at this time. You reported improvement of symptoms after fluids and medication. Please follow-up with primary care provider later this week for further evaluation. Return to ER if any return of nausea or vomiting, fevers, chills, or other concerning symptoms. - Post Discharge Activity
[2018-08-03] MEDS ORDERED: SODIUM CHLORIDE 1,000 ML IV STA (17:57)
[2018-08-03] MEDS ORDERED: ONDANSETRON 4 MG/2 ML VIAL IVPUSH ONE (17:57)
[2018-08-03 17:59] LABS: BASO % 0.9 % (0-2.0); EOS % 0.9 % (0-4.5); HEMATOCRIT 35.7 % (32.4-45.2); HEMOGLOBIN 12.4 GM/dL (10.7-15.3); LYMPH % 29.7 % (8-40); MCH 31.8 pg (25.7-33.7); MCHC 34.9 g/dl (32.0-36.0); MEAN CELL VOLUME 91.3 fl (80-96); MEAN PLT VOLUME 7.7 fl (7.5-11.1); MONO % 7.8 % (3.8-10.2); NEUT % 60.7 % (42.8-82.8); PLATELET COUNT 325 K/MM3 (134-434); RBC 3.91 M/mm3 (3.60-5.2); RDW 13.8 % (11.6-15.6); WHITE BLOOD COUNT 8.8 K/mm3 (4.0-10.0)
[2018-08-03 18:07] LABS: URINE APPEARANCE CLEAR; URINE BILIRUBIN NEGATIVE (<2.0 mg/dL); URINE COLOR STRAW; URINE GLUCOSE (UA) 3+ (NEGATIVE); URINE KETONE NEGATIVE (NEGATIVE); URINE LEUK ESTERASE NEGATIVE (NEGATIVE); URINE NITRITE NEGATIVE (NEGATIVE); URINE PROTEIN NEGATIVE (NEGATIVE); URINE UROBILINOGEN NEGATIVE mg/dL (0.2-1.0)
[2018-08-03 18:08] LABS: HCG,QUALITATIVE URINE Negative
--- NOTE | 2018-08-03 18:10 | PDOC ---
Attending Attestation - HPI HPI: 08/03/18 18:20 The patient is a 33 year old female with a past medical history of type I diabetes, HTN, and a known umbilical hernia here today for evaluation of nausea and vomiting. The patient reports that she went out drinking last night with friends and woke up the next morning feeling nauseous and vomited. She noted blood in her vomit after several episodes. She also noted that she abdominal pain that has since resolved. Patient denies headache, lightheadedness. Denies fever, chills. Denies chest pain, shortness of breath. Denies diarrhea, abdominal pain. Denies lower extremity edema. Denies urinary symptoms. Denies neurologic symptoms. Allergies: NKA PCP: none reported <Jeffrey Barber - Last Filed: 08/03/18 18:20> - Resident Resident Name: Hemant Cabrera - ED Attending Attestation I have performed the following: I have examined & evaluated the patient, The case was reviewed & discussed with the resident, I agree w/resident's findings & plan, Exceptions are as noted - HPI HPI: 08/03/18 18:08 33 yo female p/w epigastric pain and vomiting after drinking alcohol . she is IDDM and states that prior to last night her glucose levels have been good and she has had no symptom - Physicial Exam PE: 08/03/18 18:11 Well-nourished well-developed 33-year-old female in no acute distress at this time. Head is normocephalic, atraumatic neck supple,no bruits lungs cta b/l cvs [id number] abd soft,nontender ext no edema abd no rebouns,no guarding neuro axox3,ambulatory skin warma dn dry psych appropriate - Medical Decision Making 08/03/18 18:14 LMP 07/08/18 to 07/13/18 benign abd exam symptoms consistent w etoh diff diag gastritis, dka, cholecystitis,gerd 08/03/18 18:52 Negative test Glucose equal to 278, normal anion gap, Creatinine slightly bumped to 1.4, patient to receive IV fluids CBC has no leukocytosis or anemia imp gastritis due to etoh <Ivette Dunaway - Last Filed: 08/03/18 18:52>
[2018-08-03] MEDS ORDERED: ONDANSETRON 4 MG/2 ML VIAL ONE (18:23)
[2018-08-03 18:42] LABS: ALBUMIN 3.7 g/dl (3.4-5.0); ALK PHOS 78 U/L (45-117); ANION GAP 8 MMOL/L (8-16); BILIRUBIN,TOTAL 0.5 mg/dL (0.2-1); BLOOD UREA NITROGEN 19 mg/dL (7-18); CALCIUM 8.6 mg/dL (8.5-10.1); CHLORIDE 99 mmol/L (98-107); CO2 27 mmol/L (21-32); CREATININE 1.4 mg/dL (0.55-1.3); GLUCOSE,RANDOM 278 mg/dL (74-106); LIPASE 93 U/L (73-393); POTASSIUM 4.2 mmol/L (3.5-5.1); SGOT/AST 17 U/L (15-37); SGPT/ALT 20 U/L (13-61); SODIUM 134 mmol/L (136-145); TOT PROT 7.7 g/dl (6.4-8.2)
[2018-08-03 19:00] LABS: ACETONE SERUM NEGATIVE (NEGATIVE)
== END 2018-08-03 18:59 | disposition home or self-care (01) ==
LOC: JER 17:23
PROC: 3E033GC Introduction of Other Therapeutic Substance into Peripheral Vein, Percutaneous Approach (ICD-10-PCS; principal; 2018-08-03)
PROC: 3E0337Z Introduction of Electrolytic and Water Balance Substance into Peripheral Vein, Percutaneous Approach (ICD-10-PCS; 2018-08-03)
DX: R10.84 Generalized abdominal pain (principal)
CPT/HCPCS: 36415; 80053; 81003; 82009; 83690; 84703; 85025; 96361; 96374; 99283-25; J7030

== ENCOUNTER 2019-09-13 17:59 | Emergency (ER) | payer OTHER ==
[2019-09-13 18:18] VITALS: BP 145/89; PULSE 105; TEMP 98.4; BMI 21.2
--- NOTE | 2019-09-13 18:20 | PDOC ---
Rapid Medical Evaluation Chief Complaint: Cold Symptoms Time Seen by Provider: 09/13/19 18:17 Medical Evaluation: Allergies Allergy/AdvReac Type Severity Reaction Status Date / Time No Known Allergies Allergy Verified 06/05/18 10:08 Vital Signs Temp Pulse Resp BP Pulse Ox 98.4 F 105 H 18 145/89 100 09/13/19 18:16 09/13/19 18:16 09/13/19 18:16 09/13/19 18:16 09/13/19 18:16 09/13/19 18:19 I performed a brief in-persone valuation of this patient. 34-year-old female history of pre-eclampsia, HTN (no longer on meds) with subjective fever, cough, rhinorrhea since yesterday. Thinks may be . Pertinent physical exam findings: +Rhinorrhea Lungs clear HR 105 I have ordered the following: Rapid flu given suspected Pgu Discharge Disposition - Diagnosis Flu-like symptoms - Referrals - Patient Instructions - Post Discharge Activity
--- NOTE | 2019-09-13 19:28 | PDOC ---
History of Present Illness - General Chief Complaint: Cold Symptoms Stated Complaint: THROAT PAIN/COLD Time Seen by Provider: 09/13/19 18:17 - History of Present Illness Initial Comments: 09/13/19 19:27 34-year-old female presents to the emergency room requesting a test also with viral upper respiratory symptoms x2 days no systemic symptoms Past History - Past Medical History Allergies/Adverse Reactions: Allergies Allergy/AdvReac Type Severity Reaction Status Date / Time No Known Allergies Allergy Verified 06/05/18 10:08 Home Medications: Ambulatory Orders Insulin (Novolog) [Novolog] 8 units SQ AC 06/05/18 Insulin Glargine,Hum.rec.anlog [Lantus Solostar PEN (NF)] 17 units SQ HS Oseltamivir Phosphate [Tamiflu] 75 mg PO DAILY #10 capsule 09/13/19 No122/Iron/Folic Acid [ Multi Tablet] 1 each PO DAILY #30 tablet 09/13/19 Asthma: No Cancer: No Cardiac Disorders: No COPD: No Diabetes: Yes (insulin dep) HTN: Yes Seizures: No Thyroid Disease: No - Surgical History Cardiac Surgery: No Neurologic Surgery: No - Reproductive History (#): 4 Para: 2 Therapeutic (s) & number: Yes (ELECTIVE) - Immunization History Immunization Up to Date: No - Psycho Social/Smoking Cessation Hx Smoking History: Current some day smoker Have you smoked in the past 12 months: No Number of Cigarettes Smoked Daily: 2 Information on smoking cessation initiated: No Hx Alcohol Use: No Drug/Substance Use Hx: No Substance Use Type: Alcohol Hx Substance Use Treatment: No Review of Systems - Review of Systems Constitutional: No: Chills, Fever, Malaise, Night Sweats HEENTM: Yes: Nose Congestion *Physical Exam - Vital Signs Last Vital Signs Temp Pulse Resp BP Pulse Ox 98.4 F 105 H 18 145/89 100 09/13/19 18:16 09/13/19 18:16 09/13/19 18:16 09/13/19 18:16 09/13/19 18:16 - Physical Exam 09/13/19 19:28 GENERAL: The patient is awake, alert, and fully oriented, in no acute distress. HEAD: Normal with no signs of trauma. EYES: sclera anicteric, conjunctiva clear. ENT: Ears normal tympanic membranes normal oropharynx clear uvula midline NECK: Normal range of motion LUNGS: Breath sounds equal, clear to auscultation bilaterally. No wheezes, and no crackles. HEART: S1 and S2 without murmur, rub or gallop. ABDOMEN: Soft, nontender, normoactive bowel sounds. No guarding, no rebound. No masses. EXTREMITIES: Normal range of motion, no edema. No clubbing or cyanosis. No cords, erythema, or tenderness. NEUROLOGICAL: Cranial nerves II through XII grossly intact. Normal speech, normal gait. PSYCH: Normal mood, normal affect. SKIN: Warm, Dry, normal turgor, no rashes or lesions noted. Medical Decision Making - Medical Decision Making 09/13/19 21:08 Prophylactic dose of Tamiflu given. Patient has positive and positive flu contacts at home Discharge - Discharge Information Problems reviewed: Yes Clinical Impression/Diagnosis: Flu-like symptoms, Condition: Stable Disposition: HOME - Admission No - Additional Discharge Information Prescriptions: Oseltamivir Phosphate [Tamiflu] 75 mg PO DAILY #10 capsule - Follow up/Referral Referrals: Jeffrey Purdy MD [Primary Care Provider] - - Patient Discharge Instructions Additional Instructions: Please take the Tamiflu to prevent transmission of flu. Return to the emergency room for worsening symptoms. Start the vitamin and take that medication as directed your newly and need to follow-up with your mitering machine operator in 1 to 2 days for further evaluation and treatment options. You do not have a urinary tract infection. - Post Discharge Activity
[2019-09-13 21:03] LABS: URINE APPEARANCE CLOUDY; URINE BILIRUBIN NEGATIVE (NEGATIVE); URINE COLOR YELLOW; URINE GLUCOSE (UA) 1+ (NEGATIVE); URINE KETONE NEGATIVE (NEGATIVE); URINE LEUK ESTERASE NEGATIVE (NEGATIVE); URINE NITRITE NEGATIVE (NEGATIVE); URINE PROTEIN NEGATIVE (NEGATIVE); URINE UROBILINOGEN 0.2 mg/dL (0.2-1.0)
== END 2019-09-13 21:30 | disposition home or self-care (01) ==
LOC: JERFT 17:59
DX: J09.X2 Influenza due to identified novel influenza A virus with other respiratory manifestations (principal)
CPT/HCPCS: 81003; 84703; 87086; 87186; 87804; 99282-25

== ENCOUNTER 2019-09-30 16:23 | Emergency (ER) | payer OTHER ==
[2019-09-30 16:53] VITALS: TEMP 98.4; BMI 20.9
--- NOTE | 2019-09-30 16:55 | PDOC ---
Rapid Medical Evaluation Chief Complaint: Vaginal Bleeding Time Seen by Provider: 09/30/19 16:49 Medical Evaluation: Allergies Allergy/AdvReac Type Severity Reaction Status Date / Time No Known Allergies Allergy Verified 06/05/18 10:08 09/30/19 16:51 I have performed a brief in-person evaluation of this patient. The patient presents with a chief complaint of: 8 weeks preg. /Ab2 LMP 07/30 Pertinent physical exam findings: well apearing I have ordered the following: CBC/BhcG/ T&S The patient will proceed to the ED for further evaluation. Discharge Disposition - Diagnosis Vaginal bleeding affecting early - Referrals - Patient Instructions - Post Discharge Activity
[2019-09-30] MEDS ORDERED: ACETAMINOPHEN 325 MG TABLET (FP) PO ONE (17:50)
--- NOTE | 2019-09-30 17:58 | PDOC ---
History of Present Illness - General Chief Complaint: Vaginal Bleeding Stated Complaint: VAGINAL BLEEDING / 8 WEK PREG Time Seen by Provider: 09/30/19 16:49 - History of Present Illness Initial Comments: Maribel Butler is a 34yo woman, currently 8wks by LMP, who presents reporting 2 days of vaginal spotting. She states that the spotting is scant dark brown discharge. She denies any associated abdominal or back pain. She states that she was concerned because she had a miscarriage previously, and she thought that her symptoms might be due to a miscarriage. She has not yet seen OB and has not had an ultrasound, though she reports that she has an appointment scheduled next week. Her only other complaint currently is a mild headache. Past History - Past Medical History Allergies/Adverse Reactions: Allergies Allergy/AdvReac Type Severity Reaction Status Date / Time No Known Allergies Allergy Verified 09/30/19 17:27 Home Medications: Ambulatory Orders Insulin (Novolog) [Novolog] 8 units SQ AC 06/05/18 Insulin Glargine,Hum.rec.anlog [Lantus Solostar PEN (NF)] 17 units SQ HS Asthma: No Cancer: No Cardiac Disorders: No COPD: No Diabetes: Yes (insulin dep) HTN: Yes Seizures: No Thyroid Disease: No - Surgical History Cardiac Surgery: No Neurologic Surgery: No - Reproductive History Is Patient Now?: Yes (#): 6 Para: 2 Therapeutic (s) & number: Yes (2) Spontaneous : 1 - Immunization History Immunization Up to Date: No - Psycho Social/Smoking Cessation Hx Smoking History: Never smoked Have you smoked in the past 12 months: No Number of Cigarettes Smoked Daily: 2 Information on smoking cessation initiated: No Hx Alcohol Use: No Drug/Substance Use Hx: No Substance Use Type: Alcohol Hx Substance Use Treatment: No Review of Systems - Review of Systems Comments:: General: No fevers, no chills, no weight or appetite change, no malaise HEENT: No changes in vision, no changes in hearing, no congestion, no sore throat CV: No chest pain, no palpitations, no LE edema Pulm: No SOB, no cough, no wheezing GI: No nausea or vomiting, no change in bowel habits, no melena : No frequency, no urgency, no dysuria. +Vaginal spotting x2 days Musc: No back pain, no joint swelling, no recent injury Skin: No rash, no lesions, no erythema Endo: No excessive thirst, no heat/cold intolerance Heme: No unusual bruising or bleeding, no swollen glands Neuro: No syncope, no numbness/tingling, no focal weakness Vasc: No claudication Psych: No recent change in mood, no SI or HI *Physical Exam - Vital Signs Last Vital Signs Temp Pulse Resp BP Pulse Ox 98.4 F 99 H 18 143/87 100 09/30/19 16:50 09/30/19 16:50 09/30/19 16:50 09/30/19 16:50 09/30/19 16:50 - Physical Exam General: Comfortable, no acute distress HEENT: PERRL, EOMI, MMM, voice normal, normal neck ROM, no LAD Cards: RRR, no murmur appreciated Pulm: Comfortable on room air, clear to auscultation bilaterally Abd: Soft, nontender, nondistended : Normal external genitalia, no blood externally. Minimal Ext: Atraumatic. No LE edema. ROM intact. WWP Skin: Normal color, no rashes or lesions Neuro: A&Ox3, CN grossly intact, normal speech, motor/sensory grossly intact and symmetric Psych: Mood appropriate to situation ED Treatment Course - LABORATORY CBC & Chemistry Diagram: 09/30/19 17:20 - RADIOLOGY Radiology Studies Ordered: Category Date Time Status TRANSVAGINAL US PREG [US] Stat Ultrasound 09/30/19 17:49 Ordered Medical Decision Making - Medical Decision Making 09/30/19 18:48 Maribel Butler is a 34yo woman, currently 8wks by LMP, who presents reporting 2 days of scant brown vaginal spotting. She reports a mild headache currently but denies any other symptoms including abdominal or low back pain. - Exam w/ small amount of dark bleeding. Os not palpated. - CBC, bHCG, T&S sent prior to exam - TVUS to confirm IUP, r/o ectopic. - Acetaminophen for headache. 09/30/19 18:56 - bHCG 3900 - CBC unremarkable - TVUS completed, reviewed in ED. No clear IUP, concerning for possible ectopic. Radiology report pending 09/30/19 19:04 - Pt signed out to Deborah Restrepo, [place] for the remainder of her ED management. Discussed with Dr Deena Nguyen PGY2 Discharge - Discharge Information Problems reviewed: Yes Clinical Impression/Diagnosis: Vaginal bleeding affecting early Condition: Stable - Follow up/Referral Referrals: Jeffrey Purdy MD [Primary Care Provider] - - Patient Discharge Instructions - Post Discharge Activity
[2019-09-30 18:01] LABS: EOS % 1.5 % (0-4.5); HEMATOCRIT 36.4 % (32.4-45.2); HEMOGLOBIN 11.8 GM/dL (10.7-15.3); LYMPH % 32.8 % (8-40); MCH 29.5 pg (25.7-33.7); MCHC 32.4 g/dl (32.0-36.0); MEAN CELL VOLUME 90.9 fl (80-96); MEAN PLT VOLUME 7.8 fl (7.5-11.1); MONO % 10.4 % (3.8-10.2); NEUT % 54.3 % (42.8-82.8); PLATELET COUNT 381 K/MM3 (134-434); RDW 13.3 % (11.6-15.6); WHITE BLOOD COUNT 7.7 K/mm3 (4.0-10.0)
[2019-09-30] MEDS ORDERED: ACETAMINOPHEN 325 MG TABLET (FP) ONE (18:01)
--- NOTE | 2019-09-30 19:17 | PDOC ---
*Physical Exam - Vital Signs Last Vital Signs Temp Pulse Resp BP Pulse Ox 98.4 F 99 H 18 143/87 100 09/30/19 16:50 09/30/19 16:50 09/30/19 16:50 09/30/19 16:50 09/30/19 16:50 ED Treatment Course - LABORATORY CBC & Chemistry Diagram: 09/30/19 17:20 - ADDITIONAL ORDERS Additional order review: Laboratory Results 09/30/19 09/30/19 17:20 17:20 Beta HCG, Quant 3595.4 Blood Type O POSITIVE Antibody Screen Negative 09/30/19 17:20 RBC 4.00 MCV 90.9 MCHC 32.4 RDW 13.3 MPV 7.8 Neutrophils % 54.3 Lymphocytes % 32.8 Monocytes % 10.4 H Eosinophils % 1.5 Basophils % 1.0 - Medications Given in the ED: ED Medications Discontinued Medications Generic Name Dose Route Start Last Admin Trade Name Freq PRN Reason Stop Dose Admin Acetaminophen 975 mg 09/30/19 17:50 09/30/19 18:09 Tylenol - PO 09/30/19 17:51 975 mg ONCE ONE Administration Medical Decision Making - Medical Decision Making 09/30/19 19:17 Pt received on sign out from Dr. Nguyen. @ 8 weeks. Here for 2 days of vaginal spotting. Pending US read. If negative, plan to d/c home, return in 48 hours for repeat beta HCG. 09/30/19 19:31 US shows no definitive signs of ectopic or ovarian torsion. Plan to d/ c home with instructions to return in 2 days for repeat beta HCG. f/u obgyn. All questions answered. Return precautions given. Pt verbalized understanding and agreement with plan. Discharge - Discharge Information Problems reviewed: Yes Clinical Impression/Diagnosis: Vaginal bleeding affecting early Condition: Stable Disposition: HOME - Admission No - Follow up/Referral Referrals: Jeffrey Purdy MD [Primary Care Provider] - - Patient Discharge Instructions Patient Printed Discharge Instructions: DI for Ectopic Additional Instructions: Please keep your appointment with your OBGYN (Dr. Purdy) on Friday. Please return to the emergency department in 48 hours (10/02/2019) for a repeat beta HCG level. If you experience any new, worsening, or concerning symptoms, including severe abdominal pain, profuse vaginal bleeding, dizziness, shortness of breath, or any other concerns, please return to the emergency department. - Post Discharge Activity
--- NOTE | 2019-09-30 19:28 | PDOC ---
Attending Attestation - Resident Resident Name: Hyacinth Nguyen - ED Attending Attestation I have performed the following: I have examined & evaluated the patient, The case was reviewed & discussed with the resident, I agree w/resident's findings & plan, Exceptions are as noted - HPI HPI: 10/01/19 14:47 Agree with Residents HPI - Physicial Exam PE: 09/30/19 19:28 Vitals: Triage Vital signs reviewed General Appearance: No acute distress, well nourished well developed, Cardiac: Regular rate and rhythym, no murmurs, no rubs, no gallops, Lungs: Clear to auscultation bilateral, good air movement bilaterally, Abdomen: Soft, non distended, normal bowel sounds, non tender to palpation Psych: Normal mood, normal affect - Medical Decision Making 09/30/19 19:27 Is almost 34 years old with vaginal spotting Positive We will check labs ultrasound reassess Dr. Quiroz to follow-up results.
[2019-09-30 20:02] VITALS: BP 132/83; PULSE 86
== END 2019-09-30 20:02 | disposition home or self-care (01) ==
LOC: JER 16:23
DX: O26.891 Other specified pregnancy related conditions, first trimester (principal); O20.8 Other hemorrhage in early pregnancy; Z3A.08 8 weeks gestation of pregnancy; O24.011 Pre-existing type 1 diabetes mellitus, in pregnancy, first trimester; E10.9 Type 1 diabetes mellitus without complications; Z79.4 Long term (current) use of insulin; I10 Essential (primary) hypertension
CPT/HCPCS: 36415; 76817-TC; 84702; 85025; 86850; 86900; 86901; 99283-25

== ENCOUNTER 2019-10-02 21:31 | Emergency (ER) | payer OTHER ==
[2019-10-02 21:53] VITALS: TEMP 98.7; BMI 21.6
--- NOTE | 2019-10-02 22:13 | PDOC ---
History of Present Illness - General Chief Complaint: BHCG Stated Complaint: 9 WKS Time Seen by Provider: 10/02/19 22:11 - History of Present Illness Initial Comments: 10/02/19 22:13 Ms. Butler is a 34 yo female at 8 weeks by LMP who represents to ED for repeat BHCG and US. Patient evaluated 2 days ago in this ED for vaginal spotting and found to be , US unable to confirm IUP and BHCG 3595.4. Patient reports she is symptom free at this time and spotting has stopped. The patient denies chest pain, shortness of breath, headache and dizziness. Denies fever, chills, nausea, vomit, diarrhea and constipation. Denies dysuria, frequency, urgency and hematuria. Past History - Past Medical History Allergies/Adverse Reactions: Allergies Allergy/AdvReac Type Severity Reaction Status Date / Time No Known Allergies Allergy Verified 09/30/19 17:27 Home Medications: Ambulatory Orders Insulin (Novolog) [Novolog] 8 units SQ AC 06/05/18 Insulin Glargine,Hum.rec.anlog [Lantus Solostar PEN (NF)] 17 units SQ HS Asthma: No Cancer: No Cardiac Disorders: No COPD: No Diabetes: Yes (insulin dep) HTN: Yes Seizures: No Thyroid Disease: No - Surgical History Cardiac Surgery: No Neurologic Surgery: No - Reproductive History (#): 6 Para: 2 Therapeutic (s) & number: Yes (2) Spontaneous : 1 - Immunization History Immunization Up to Date: No - Psycho Social/Smoking Cessation Hx Smoking History: Never smoked Have you smoked in the past 12 months: No Number of Cigarettes Smoked Daily: 2 Hx Alcohol Use: No Drug/Substance Use Hx: No Substance Use Type: Alcohol Hx Substance Use Treatment: No Review of Systems - Review of Systems Comments:: 10/02/19 22:14 GENERAL/CONSTITUTIONAL: No fever or chills. No weakness. HEAD, EYES, EARS, NOSE AND THROAT: No change in vision. No ear pain or discharge. No sore throat. CARDIOVASCULAR: No chest pain or shortness of breath RESPIRATORY: No cough, wheezing, or hemoptysis. GASTROINTESTINAL: No nausea, vomiting, diarrhea or constipation. GENITOURINARY: No dysuria, frequency, or change in urination. MUSCULOSKELETAL: No joint or muscle swelling or pain. No neck or back pain. SKIN: No rash NEUROLOGIC: No headache, vertigo, loss of consciousness, or change in strength/ sensation. ENDOCRINE: No increased thirst. No abnormal weight change HEMATOLOGIC/LYMPHATIC: No anemia, easy bleeding, or history of blood clots. ALLERGIC/IMMUNOLOGIC: No hives or skin allergy. *Physical Exam - Vital Signs Last Vital Signs Temp Pulse Resp BP Pulse Ox 98.7 F 103 H 19 110/75 100 10/02/19 21:51 10/02/19 21:51 10/02/19 21:51 10/02/19 21:51 10/02/19 21:51 - Physical Exam 10/02/19 22:15 GENERAL: Awake, alert, and fully oriented, in no acute distress HEAD: No signs of trauma, normocephalic, atraumatic EYES: PERRLA, EOMI, sclera anicteric, conjunctiva clear ENT: Auricles normal inspection, hearing grossly normal, nares patent, oropharynx clear without exudates. Moist mucosa NECK: Normal ROM, supple, no lymphadenopathy, JVD, or masses LUNGS: No distress, speaks full sentences, clear to auscultation bilaterally HEART: Regular rate and rhythm, normal S1 and S2, no murmurs, rubs or gallops, peripheral pulses normal and equal bilaterally. ABDOMEN: Soft, nontender, normoactive bowel sounds. No guarding, no rebound. No masses EXTREMITIES: Normal inspection, normal range of motion, no edema. No clubbing or cyanosis. NEUROLOGICAL: Cranial nerves II through XII grossly intact. Normal speech, normal gait, no focal sensorimotor deficits SKIN: Warm, Dry, normal turgor, no rashes or lesions noted. Medical Decision Making - Medical Decision Making 10/02/19 22:12 Ms. Butler is a 34 yo female w/ pmh as described who presents for repeat evaluation as directed. Patient well appearing with no complaints at this time. Will evaluate repeat BHCG, TVUS, and UA/Urine Cx. 10/02/19 23:45 BHCG somewhat increased (up 1000) as below however not doubled. US again non- contributory. UA negative as below. Patient will f/u outpatient w/ BUDGET ACCOUNTANT. Discharging to home. 10/03/19 00:15 Laboratory Results - last 24 hr 10/02/19 10/02/19 22:30 22:50 Beta HCG, Quant 4551.1 Urine Color Yellow Urine Appearance Clear Urine pH 6.5 Ur Specific [place] 1.017 Urine Protein Trace Urine Glucose (UA) Negative Urine Ketones Negative Urine Blood Trace Urine Nitrite Negative Urine Bilirubin Negative Urine Urobilinogen 0.2 Ur Leukocyte Esterase Negative Urine WBC (Auto) 4 Urine RBC (Auto) 4 Urine Casts (Auto) 1 U Epithel Cells (Auto) 6.3 Urine Bacteria (Auto) 100.0 Discharge - Discharge Information Problems reviewed: Yes Clinical Impression/Diagnosis: Ultrasound scan to recheck heart rate Disposition: HOME - Follow up/Referral Referrals: Bert Cordova MD [Staff Physician] - - Patient Discharge Instructions Patient Printed Discharge Instructions: DI for Vaginal Bleeding During Additional Instructions: You were evaluated today in the ER. We performed US which again was non- specific and labs which showed a beta-HCG which increased to 4551.1 from 3595.4. Please follow-up with OB-EMPLOYMENT COACH as discussed for further evaluation. Return to ER if any pain, fever, chills, vaginal bleeding, or other concerning symptoms. - Post Discharge Activity Work/Back to School Note: Back to Work
[2019-10-02 23:03] LABS: EPI CELLS 6.3 /HPF (0-5/HPF); HYALINE CASTS 1 /lpf (0-8); PH,URINE 6.5 (5.0-8.0); URINE APPEARANCE CLEAR; URINE BILIRUBIN NEGATIVE (NEGATIVE); URINE COLOR YELLOW; URINE GLUCOSE (UA) NEGATIVE (NEGATIVE); URINE KETONE NEGATIVE (NEGATIVE); URINE LEUK ESTERASE NEGATIVE (NEGATIVE); URINE NITRITE NEGATIVE (NEGATIVE); URINE PROTEIN TRACE (NEGATIVE); URINE RBC 4 /hpf (0-4); URINE UROBILINOGEN 0.2 mg/dL (0.2-1.0); URINE WBC 4 /hpf (0-5)
--- NOTE | 2019-10-02 23:24 | PDOC ---
Attending Attestation - Resident Resident Name: Hemant Cabrera - ED Attending Attestation I have performed the following: I have examined & evaluated the patient, The case was reviewed & discussed with the resident, I agree w/resident's findings & plan - HPI HPI: 10/02/19 23:44 Pt comes for reeval; she was told to follow up in 2 days for repeat bhcg; She is approx 8 weeks by dates, and she was here yesterday for vag bleed and threatened ab.. 10/02/19 23:54 - Physicial Exam PE: 10/02/19 23:45 Agree with resident exam - Medical Decision Making 10/02/19 23:24 Pt's UA is normal 10/02/19 23:45 hcg is 4500. Up from 3500. We expect boubling in 2 days. Pt will be asked to follow with electronic prepress operator PRECISION CROP MANAGER Art. 10/02/19 23:55 Known O-positive blood type 10/03/19 00:06 Patient Name: CHERISE OLIVARES THIS IS A PRELIMINARY REPORT FROM [facility] DATE OF SERVICE: 2019-10-02 22:58:30 IMAGES: 22 EXAM: ULTRASOUND OB LESS THAN 14 WEEKS TRANSVAGINAL AND ULTRASOUND AND COLOR DUPLEX HISTORY: 34-Year-Old Female Assessed For An Intrauterine Last Menstrual Period July 30, 2019 Estimated Gestational Age Based On The Last Menstrual Period 9 Weeks 1 Day COMPARISON: None. FINDINGS: Within the endometrium there is a nonspecific cystic fluid collection may be due to a gestational sac. No pole. No yolk sac. The uterus measures 8.7 x 4.8 x 4.4 cm. There is no evidence of myometrial masses. The right ovary measures 3.2 x 1.6 x 1.9 cm. There are no right ovarian masses. Limited exam. Nonvisualization of the left ovary. There is no free fluid in the pelvis. COLOR DUPLEX: There is satisfactory perfusion to the right ovary with normal appearing arterial and venous spectral waveforms. IMPRESSION: No evidence of right ovarian torsion. Within the endometrium there is a nonspecific cystic fluid collection may be due to a gestational sac. No pole. No yolk sac. This may be due to a normal early intrauterine that is too early to detect versus a spontaneous and an early ectopic cannot be excluded on this exam. If clinically indicated recommend correlation with serial beta hCG levels. Limited exam. Nonvisualization of the left ovary.
[2019-10-03 00:10] VITALS: BP 112/80; PULSE 95
== END 2019-10-03 00:23 | disposition home or self-care (01) ==
LOC: JER 21:31
DX: O26.891 Other specified pregnancy related conditions, first trimester (principal); O36.80X0 Pregnancy with inconclusive fetal viability, not applicable or unspecified; Z3A.01 Less than 8 weeks gestation of pregnancy; I10 Essential (primary) hypertension; E10.9 Type 1 diabetes mellitus without complications; Z79.4 Long term (current) use of insulin
CPT/HCPCS: 36415; 76817-TC; 81003; 84702; 87086; 99282-25

== ENCOUNTER 2019-10-16 00:49 | Emergency (ER) | payer OTHER ==
[2019-10-16 01:00] VITALS: BP 132/81; PULSE 95; TEMP 98; BMI 22.1
--- NOTE | 2019-10-16 01:53 | PDOC ---
History of Present Illness - General Chief Complaint: Vaginal Bleeding Stated Complaint: VAGINAL BLEEDING/10 WKS Time Seen by Provider: 10/16/19 01:52 History Source: Patient Exam Limitations: No Limitations - History of Present Illness Initial Comments: 10/16/19 01:54 34 yo female 10wks presenting w 2d vaginal bleeding, suprapubic cramping. Thinks she passed fetus yesterday, collected in prescription bottle. currently doesnt have any ABD pain and has light spotting. Denies fever, chest pain, SOB, urinary/bowel mvmt changes. Past History - Past Medical History Allergies/Adverse Reactions: Allergies Allergy/AdvReac Type Severity Reaction Status Date / Time No Known Allergies Allergy Verified 10/16/19 00:57 Home Medications: Ambulatory Orders Insulin Glargine,Hum.rec.anlog [Basaglar Kwikpen U-100] 100 unit SQ DAILY Insulin NPH Hum/Reg Insulin Hm [Novolin 70-30 Flexpen] 100 unit SQ DAILY Asthma: No Cancer: No Cardiac Disorders: No COPD: No Diabetes: Yes (insulin dep) HTN: Yes Seizures: No Thyroid Disease: No - Surgical History Cardiac Surgery: No Neurologic Surgery: No - Reproductive History (#): 6 Para: 2 Therapeutic (s) & number: Yes (2) Spontaneous : 1 - Immunization History Immunization Up to Date: No - Psycho Social/Smoking Cessation Hx Smoking History: Never smoked Have you smoked in the past 12 months: No Number of Cigarettes Smoked Daily: 2 Information on smoking cessation initiated: No Hx Alcohol Use: No Drug/Substance Use Hx: No Substance Use Type: Alcohol Hx Substance Use Treatment: No Review of Systems - Review of Systems Constitutional: No: Chills, Fever HEENTM: No: Eye Pain, Nose Pain Respiratory: No: Cough, Shortness of Breath Cardiac (ROS): No: Chest Pain, Palpitations ABD/GI: Yes: Abdominal Distended. No: Constipated, Diarrhea, Nausea, Vomiting : No: Burning, Dysuria Musculoskeletal: No: Back Pain, Joint Pain Integumentary: No: Bruising, Flushing Neurological: No: Headache, Seizure Psychiatric: No: Anxiety, Depression Endocrine: No: Intolerance to Cold, Intolerance to Heat Hematologic/Lymphatic: No: Anemia, Blood Clots *Physical Exam - Vital Signs Last Vital Signs Temp Pulse Resp BP Pulse Ox 98.0 F 95 H 20 132/81 100 10/16/19 00:57 10/16/19 00:57 10/16/19 00:57 10/16/19 00:57 10/16/19 00:57 - Physical Exam General Appearance: Yes: Nourished, Appropriately Dressed, Mild Distress HEENT: positive: EOMI, PERCY, Normal Voice Respiratory/Chest: positive: Lungs Clear, Normal Breath Sounds. negative: Chest Tender, Respiratory Distress Cardiovascular: positive: Regular Rhythm, S1, S2, Tachycardia. negative: Edema , Murmur Gastrointestinal/Abdominal: positive: Normal Bowel Sounds, Soft, Distended. negative: Tender, Organomegaly Extremity: positive: Normal Capillary Refill Integumentary: positive: Normal Color Neurologic: positive: armature winder helper repair II-XII NML intact, Fully Oriented, Alert, Normal Response, Responsive ED Treatment Course - LABORATORY CBC & Chemistry Diagram: 10/16/19 02:48 Medical Decision Making - Medical Decision Making 10/16/19 02:10 pelvic exam - 5cm open cervical os, minimal blood, no cervical/ovarian tenderness Likely complete vs inevitable . Low concern for endometritis ( afebrile) Consulted Dr Cordova, advised do not give any prophylactic meds if pt wants to leave AMA Left AMA w OBGYN f/u Discharge - Discharge Information Problems reviewed: Yes Clinical Impression/Diagnosis: Vaginal bleeding affecting early Condition: Stable - Admission No - Follow up/Referral Referrals: Jeffrey Purdy MD [Primary Care Provider] - CallBack Reminder: b-HCG - Patient Discharge Instructions Additional Instructions: You decided to leave before getting an ultrasound We will call you with your lab results Follow up with your OBGYN doctor - Post Discharge Activity
--- NOTE | 2019-10-16 01:55 | PDOC ---
Attending Attestation - Resident Resident Name: Rajendra Porras - ED Attending Attestation I have performed the following: I have examined & evaluated the patient, The case was reviewed & discussed with the resident, I agree w/resident's findings & plan - HPI HPI: 10/17/19 04:26 Pt comes with a blood clot that she passed and she thinks that she passed her fetus. Pt has had threatened ab in the past. She has no abd pain. - Physicial Exam PE: 10/17/19 04:27 Agree with resident exam pt has no abdominal pain. She has open os No flank pain; no fever no chills HEENT normal heart normal lungs nomal - Medical Decision Making 10/16/19 02:44 Pt is having a threatened presentation; os is open and she will be sent for sono in the AM. Pt had bhcg of 4500 in the recent past; today's result is pending Pt is O-positive. 10/17/19 04:30 Pt refused o scott for sono; she will follow with PMD and she will go to her FERMENTATION MANAGER next week HCG is dropping to 1500 Discharge - Discharge Information Problems reviewed: Yes Clinical Impression/Diagnosis: Vaginal bleeding affecting early , Miscarriage Condition: Stable Disposition: HOME - Follow up/Referral Referrals: Jeffrey Purdy MD [Primary Care Provider] - CallBack Reminder: b-HCG - Patient Discharge Instructions Additional Instructions: You decided to leave before getting an ultrasound We will call you with your lab results Follow up with your OBGYN doctor - Post Discharge Activity Work/Back to School Note: Back to Work
[2019-10-16 03:09] LABS: BASO % 0.9 % (0-2.0); EOS % 1.9 % (0-4.5); HEMATOCRIT 32.2 % (32.4-45.2); HEMOGLOBIN 10.7 GM/dL (10.7-15.3); LYMPH % 34.6 % (8-40); MCH 29.7 pg (25.7-33.7); MCHC 33.3 g/dl (32.0-36.0); MEAN CELL VOLUME 89.1 fl (80-96); MEAN PLT VOLUME 7.8 fl (7.5-11.1); MONO % 9.5 % (3.8-10.2); NEUT % 53.1 % (42.8-82.8); PLATELET COUNT 343 K/MM3 (134-434); RBC 3.61 M/mm3 (3.60-5.2); RDW 13.2 % (11.6-15.6); WHITE BLOOD COUNT 9.5 K/mm3 (4.0-10.0)
== END 2019-10-16 04:51 | disposition home or self-care (01) ==
LOC: JER 00:49
DX: O26.891 Other specified pregnancy related conditions, first trimester (principal); O03.9 Complete or unspecified spontaneous abortion without complication; Z3A.10 10 weeks gestation of pregnancy; E10.9 Type 1 diabetes mellitus without complications; Z79.4 Long term (current) use of insulin; I10 Essential (primary) hypertension
CPT/HCPCS: 36415; 84702; 85025; 99284-25